=== PATIENT | female | born 1950 | race Caucasian/White ===

== ENCOUNTER 2024-03-08 05:02 | Emergency (ER) | payer MEDICARE, BC, SELFPAY ==
[2024-03-08 05:10] VITALS: PULSE 70; RESP 18; TEMP 37; O2SAT 98; BMI 21.9
--- NOTE | 2024-03-08 05:15 | W.ED.EXTPRO ---
HPI - Extremity Problem General: Chief complaint: Extremity Injury, Lower Stated complaint: Left ankle injury Time Seen by Provider: 03/08/24 05:12 History of Present Illness: Patient says she twisted her ankle. She does not have any pain. There is some mild swelling she states she has never had an injury before so that is why she came to the emergency room. She says she is being proactive Review of Systems Narrative: Constitutional symptoms: Negative except as documented in HPI. Skin symptoms: Negative except as documented in HPI. Eye symptoms: Negative except as documented in HPI. ENMT symptoms: Negative except as documented in HPI. Respiratory symptoms: Negative except as documented in HPI. Cardiovascular symptoms: Negative except as documented in HPI. Gastrointestinal symptoms: Negative except as documented in HPI. Genitourinary symptoms: Negative except as documented in HPI. Musculoskeletal symptoms: Negative except as documented in HPI. Neurologic symptoms: Negative except as documented in HPI. Psychiatric symptoms: Negative except as documented in HPI. Endocrine symptoms: Negative except as documented in HPI. Physical Exam Narrative: EXAM NARRATIVE: General: Alert, no acute distress. Skin: warm and dry Head: Normocephalic Neck: Trachea midline Eye: Extraocular movements are intact. Ears, nose, mouth and throat: Oral mucosa moist Respiratory: Respirations are non-labored Musculoskeletal: Normal ROM. Bruising and swelling to the top lateral proximal foot Neurological: Alert and oriented, No focal neurological deficit observed. Psychiatric: Cooperative, appropriate mood & affect. Course Vital Signs: Vital signs: Vital Signs Temperature 98.6 F 03/08/24 05:10 Pulse Rate 70 03/08/24 05:10 Respiratory Rate 18 03/08/24 05:10 Blood Pressure 167/71 03/08/24 05:16 Pulse Oximetry 98 03/08/24 05:10 MDM - Extremity (Nontraumatic) Medical Decision Making X-ray of the left foot: No fractures. No dislocations. This was reviewed and interpreted by myself the emergency room physician. Assessment and plan: Ankle sprain - Discharged home - Discussed plan with patient. Answered any questions. - Evaluation and treatment of this problem were appropriate in the emergency setting. XR interpretation done by ED provider, pending radiology final review Discharge Plan Discharge Patient Disposition: Home Clinical Impression: Ankle sprain and strain Condition: Stable Discharge Orders: Discharge ED (Routine); Ordered 03/08/24 Ordered By: Laura Torres Discharge Diet: Usual diet Discharge Activity: Increase activity as tolerated Patient Instructions: Ankle Sprain (ED) Activity Restrictions/Additional Instructions: Thank you for choosing [facility] for your healthcare needs today. Please realize this is an emergency room and that we are providing you with a medical screening exam and this may not be complete and all inclusive of all the testing and or work up that you may need to determine your ailment or severity of your illness. You have been screened and evaluated and felt safe for discharge. Health conditions do change or evolve sometimes and as such it is important that you follow up with your Primary Doctor to be re checked, 3-5 days is a general good time frame for follow up. 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
[2024-03-08 05:16] VITALS: BP 167/71
--- NOTE | 2024-03-08 05:22 | XRR_ITS ---
PROCEDURE INFORMATION: Exam: XR Left Foot Exam date and time: 03/08/2024 5:25 AM Age: 74 years old Clinical indication: Injury or trauma; Other: Twisted ankle stepping off porch; Swelling (edema); Foot; Left; Additional info: Foot injury TECHNIQUE: Imaging protocol: Radiologic exam of the left foot. Views: 1 or 2 views. COMPARISON: No relevant prior studies available. FINDINGS: Bones/joints: Multiple well ossified bodies are appreciated dorsally adjacent the navicular bone which may represent prior trauma to the joint capsule, degenerative change. Mild scattered osteoarthritis. Achilles insertion enthesophyte. Soft tissues: Swelling of the lateral soft tissues of the ankle and hindfoot. XR/XR foot LT 2V [id number] IMPRESSION: 1. Swelling of the lateral tissues of the ankle and hindfoot. 2. No definitive fracture, however recommend left ankle radiographs for further evaluation of lateral soft tissue swelling.
[2024-03-08 05:43] VITALS: BP 175/87; PULSE 61; RESP 18; O2SAT 99
== END 2024-03-08 05:47 | disposition home or self-care (01) ==
PROVIDERS: Emergency Provider Emergency Medicine
DX: S93.402A Sprain of unspecified ligament of left ankle, initial encounter (principal); S96.912A Strain of unspecified muscle and tendon at ankle and foot level, left foot, initial encounter; X50.1XXA Overexertion from prolonged static or awkward postures, initial encounter
CPT/HCPCS: 73620; 99283